=== PATIENT | male | born 1990 | race Caucasian/White ===

== ENCOUNTER 2017-01-26 04:26 | Emergency (ER) | payer SELFPAY ==
[~2017-01-26] VITALS: Ht 172.7 cm; Wt 94.0 kg
[~2017-01-26 04:26] MED LIST: AUGM875T PO; PEPT262S PO; RANI150 PO; TUMS500C CHEW
[2017-01-26 04:28] VITALS: BP 113/73; PULSE 85; RESP 16; TEMP 97.8; O2SAT 97
[2017-01-26] MEDS ORDERED: SODIUM CHLOR 0.9% 1000 ML INJ 1,000 ML IV SCH (06:18)
[2017-01-26] MEDS ORDERED: SODIUM CHLORIDE 0.9% FLUSH 10 ML FLUSH IV FLUSH PRN (06:30)
[2017-01-26 06:50] LABS: AUTOMATED NEUTROPHIL # 13.8 TH/MM3 (1.8-7.7); BASOPHIL # 0.1 TH/MM3 (0-0.2); BASOPHIL % 0.3 % (0.0-2.0); EOSINOPHIL # 0.1 TH/MM3 (0-0.4); EOSINOPHIL % 0.6 % (0.0-4.0); HEMATOCRIT 45.7 % (39.0-51.0); HEMO FLAGS DIFF FINAL; LYMPH % 6.4 % (9.0-44.0); MEAN CELL VOLUME 83.1 FL (80.0-100.0); MEAN CORPUSCULAR HEMOGLOBIN 27.1 PG (27.0-34.0); MEAN CORPUSCULAR HGB CONC 32.6 % (32.0-36.0); MONO % 3.7 % (0.0-8.0); PLATELET COUNT 294 TH/MM3 (150-450); RED CELL DISTRIBUTION WIDTH 14.5 % (11.6-17.2); WHITE BLOOD COUNT 15.6 TH/MM3 (4.0-11.0)
[2017-01-26 06:59] LABS: APTT (PATIENT) 28.1 SEC (24.3-30.1); INTERNATIONAL NORMALIZED RATIO 0.9 RATIO; PROTHROMBIN TIME - PATIENT 10.1 SEC (9.8-11.6)
[2017-01-26 07:14] LABS: ALT (GPT) 45 U/L (12-78); ANION GAP 8 MEQ/L (5-15); AST (GOT) 22 U/L (15-37); BICARBONATE 25.5 MEQ/L (21.0-32.0); BLOOD UREA NITROGEN 13 MG/DL (7-18); CHLORIDE 107 MEQ/L (98-107); GLOMERULAR FILTRATION RATE 80 ML/MIN (>89); POTASSIUM 3.9 MEQ/L (3.5-5.1); SODIUM (NA) 140 MEQ/L (136-145)
[2017-01-26 07:16] LABS: ALKALINE PHOSPHATASE 85 U/L (45-117); TOTAL BILIRUBIN ADULT 0.4 MG/DL (0.2-1.0)
[2017-01-26] MEDS ORDERED: IOHEXOL 350 MG/ML 10 ML VIAL (for RAD DIAG) IVCONTRAST ONE (07:24)
--- NOTE | 2017-01-26 07:59 | RADRPT ---
EXAM DATE/TIME: 01/26/2017 07:25 [place] COMPARISON: No previous studies available for comparison. INDICATIONS : Lower abdomen pain today. IV CONTRAST: 95 cc Omnipaque 350 (iohexol) IV ORAL CONTRAST: No oral contrast ingested. RADIATION DOSE: 15.32 CTDIvol (mGy) MEDICAL HISTORY : Gastroesophageal reflux disease. SURGICAL HISTORY : None. ENCOUNTER: Initial ACUITY: 1 day PAIN SCALE: 8/10 LOCATION: Bilateral lower quadrant TECHNIQUE: Volumetric scanning of the abdomen and pelvis was performed. Using automated exposure control and ad justment of the mA and/or kV according to patient size, radiation dose was kept as low as reasonably achievable to obtain optimal diagnostic quality images. DICOM format image data is available electro nically for review and comparison. FINDINGS: LOWER LUNGS: The visualized lower lungs are clear. LIVER: Homogeneous density without lesion. There is no dilation of the biliary tree. No calcified gallston es. SPLEEN: Normal size without lesion. PANCREAS: Within normal limits. KIDNEYS: Normal in size and shape. There is no mass, stone or hydronephrosis. ADRENAL GLANDS: Within normal limits. VASCULAR: There is no aortic aneurysm. BOWEL/MESENTERY: The stomach, small bowel, and colon demonstrate no acute abnormality. There is no free intraperitone al air or fluid. ABDOMINAL WALL: Within normal limits. RETROPERITONEUM: There is no lymphadenopathy. BLADDER: No wall thickening or mass. REPRODUCTIVE: Within normal limits. INGUINAL: There is no lymphadenopathy or hernia. MUSCULOSKELETAL: Within normal limits for patient age. CONCLUSION: Normal examination. Silvino Chapa MD on January 26, 2017 at 7:55 Board Certified Radiologist. This report was verified electronically.
--- NOTE | 2017-01-26 08:07 | PD ---
HPI Chief Complaint: Abdominal Pain Time Seen by Provider: 06:18 Travel History International Travel<30 days: No Contact w/Intl Traveler<30days: No Traveled to known affect area: No History of Present Illness HPI 26-year-old male presents to the emergency department by EMS transport from home for evaluation of near syncopal episode just prior to arrival to the emergency department. According the patient he has been in his normal state of good health and had felt well all day with the bed and was awakened from sleep with lower abdominal cramping. Patient felt as if he he may have a diarrheal stool and went to the bathroom. Patient states because of lower abdominal pain patient felt lightheaded went to his parents room where they witnessed him to be pale and weak and assisted him down so there was no injury or fall. Patient quickly recovered and was brought to the emergency room for further evaluation. Upon arrival to the emergency department patient had a bowel movement of formed stool subsequently a loose diarrheal stool and then finally passed some red blood per rectum. Patient denies any recent fever chills nausea vomiting or localized abdominal pain yesterday. The patient denies any dietary indiscretion well water ingestion foreign travel. No other family members with similar symptoms. Patient has no chronic GI issues no irritable bowel syndrome no inflammatory bowel disease Crohn's or ulcer colitis. Patient does have family history of Crohn's in a cousin. Patient denied any mucoid stool. No recent antibiotic use. Lower abdominal discomfort has eased. Patient denies any rectal pain. Patient denies any trauma. PFSH Past Medical History Narrative Medical GERD; dental extraction; occasional alcohol use and: Nursing notes reviewed GERD: Yes Immunizations Current: No Past Surgical History Surgical History: No Previous Surgery Social History Alcohol Use: Yes (RARE) Tobacco Use: No Substance Use: No Allergies-Medications (Allergen,Severity, Reaction): Coded Allergies: No Known Allergies (Unverified , 01/26/17) Reported Meds & Prescriptions Reported Meds & Active Scripts Active No Active Prescriptions or Reported Medications Review of Systems Except as stated in HPI: all other systems reviewed are Neg General / Constitutional: No: Fever, Chills HENT: No: Congestion Cardiovascular: No: Chest Pain or Discomfort Respiratory: No: Shortness of Breath Gastrointestinal: Positive: Nausea, Diarrhea, Abdominal Pain, Hematochezia, No : Vomiting Genitourinary: No: Flank Pain Musculoskeletal: No: Myalgias, Arthralgias (times one) Skin: No Rash Neurologic: Positive: Dizziness, Syncope (near-syncope without syncope), No: Weakness Psychiatric: No: Anxiety Hematologic/Lymphatic: No: Lymph Node Enlargement Physical Exam Narrative GENERAL: Well-developed well-nourished male in no acute distress no respiratory distress cervical normotensive SKIN: Warm and dry. HEAD: Normocephalic. EYES: No scleral icterus. No injection or drainage. NECK: Supple, trachea midline. No JVD or lymphadenopathy. CARDIOVASCULAR: Regular rate and rhythm without murmurs, gallops, or rubs. RESPIRATORY: Breath sounds equal bilaterally. No accessory muscle use. GASTROINTESTINAL: Abdomen soft, mild suprapubic tenderness to palpation without guarding or rebound, nondistended. Rectal exam; no fissure no prolapsed hemorrhoids normal sphincter tone. Previous on exam glove no bladder or stool. MUSCULOSKELETAL: No cyanosis, or edema. BACK: Nontender without obvious deformity. No CVA tenderness. Data Data Last Documented VS Vital Signs Date Time Temp Pulse Resp B/P (MAP) Pulse Ox O2 Delivery O2 Flow Rate FiO2 01/26/17 04:28 97.8 85 16 113/73 (86) 97 Room Air Orders Orders Complete Blood Count With Diff (01/26/17 06:18) Comprehensive Metabolic Panel (01/26/17 06:18) Lipase (01/26/17 06:18) Lactic Acid (01/26/17 06:18) Prothrombin Time / Inr (Pt) (01/26/17 06:18) Act Partial Throm Time (Ptt) (01/26/17 06:18) Ua Includes Microscopic (01/26/17 06:18) Ct Abd/Pel W Iv Contrast(Rout) (01/26/17 06:18) Iv Access Insert/Monitor (01/26/17 06:18) Ecg Monitoring (01/26/17 06:18) Oximetry (01/26/17 06:18) Sodium Chlor 0.9% 1000 Ml Inj (Ns 1000 M (01/26/17 06:18) Sodium Chloride 0.9% Flush (Ns Flush) (01/26/17 06:30) Type And Screen (01/26/17 06:18) Orthostatic Vital Signs (01/26/17 06:18) Iohexol 350 Inj (Omnipaque 350 Inj) (01/26/17 07:24) Labs Laboratory Tests Test 01/26/17 06:34 White Blood Count 15.6 TH/MM3 Red Blood Count 5.50 MIL/MM3 Hemoglobin 14.9 GM/DL Hematocrit 45.7 % Mean Corpuscular Volume 83.1 FL Mean Corpuscular Hemoglobin 27.1 PG Mean Corpuscular Hemoglobin Concent 32.6 % Red Cell Distribution Width 14.5 % Platelet Count 294 TH/MM3 Mean Platelet Volume 9.2 FL Neutrophils (%) (Auto) 89.0 % Lymphocytes (%) (Auto) 6.4 % Monocytes (%) (Auto) 3.7 % Eosinophils (%) (Auto) 0.6 % Basophils (%) (Auto) 0.3 % Neutrophils # (Auto) 13.8 TH/MM3 Lymphocytes # (Auto) 1.0 TH/MM3 Monocytes # (Auto) 0.6 TH/MM3 Eosinophils # (Auto) 0.1 TH/MM3 Basophils # (Auto) 0.1 TH/MM3 CBC Comment DIFF FINAL Differential Comment Prothrombin Time 10.1 SEC Prothromb Time International Ratio 0.9 RATIO Activated Partial Thromboplast Time 28.1 SEC Blood Urea Nitrogen 13 MG/DL Creatinine 1.10 MG/DL Random Glucose 103 MG/DL Total Protein 8.0 GM/DL Albumin 4.0 GM/DL Calcium Level 9.4 MG/DL Alkaline Phosphatase 85 U/L Aspartate Amino Transf (AST/SGOT) 22 U/L Alanine Aminotransferase (ALT/SGPT) 45 U/L Total Bilirubin 0.4 MG/DL Sodium Level 140 MEQ/L Potassium Level 3.9 MEQ/L Chloride Level 107 MEQ/L Carbon Dioxide Level 25.5 MEQ/L Anion Gap 8 MEQ/L Estimat Glomerular Filtration Rate 80 ML/MIN Lactic Acid Level 1.9 mmol/L Lipase 106 U/L [facility] Medical Decision Making Medical Screen Exam Complete: Yes Emergency Medical Condition: Yes Medical Record Reviewed: Yes Interpretation(s) Lactic acid 1.9 Last Impressions Abdomen/Pelvis CT 01/26/1718 Signed Impressions: Service Date/Time: Thursday, January 26, 2017 07:25 - CONCLUSION: Normal examination. Silvino Chapa MD CBC & BMP Diagram 01/26/17 06:34 Total Protein 8.0, Albumin 4.0, Calcium Level 9.4, Alkaline Phosphatase 85, Aspartate Amino Transf (AST/SGOT) 22, Alanine Aminotransferase (ALT/SGPT) 45, Total Bilirubin 0.4 Vital Signs Date Time Temp Pulse Resp B/P (MAP) Pulse Ox O2 Delivery O2 Flow Rate FiO2 01/26/17 04:28 97.8 85 16 113/73 (86) 97 Room Air Differential Diagnosis Near syncope arrhythmia vasovagal syncope lower GI bleed colitis inflammatory bowel disease Narrative Course Patient placed on monitor IV access obtained patient administered 1 L normal saline and Zofran 4 mg IV Patient resting comfortably voicing no concerns or complaints waiting on lab results CBC is automated differential shows a leukocytosis with mild left shift 89% neutrophils normal hemoglobin hematocrit platelet count Patient remains afebrile lactic acid 0.9 not elevated Chemistries are grossly within normal range CT abdomen and pelvis reveals no acute intra-abdominal or pelvic process Patient reassessed at 8:20 AM and reports feeling clinically improved desirous of urinating and specimen collected sent for resulting Orthostatic measurements performed HemaPrompt Point of Care Internal Pos. & Neg. Controls: Passed Fecal Specimen Occult Blood: Negative Diagnosis Primary Impression: Vasovagal near syncope Additional Impressions: Gastroenteritis Rectal bleeding Referrals: Primary Care Physician 1 day Patient Instructions: General Instructions Additional Instructions: Increase fluid hydration Follow clear liquid diet for next 12-24 hours; then advance as tolerated to bland/Esme diet and regular diet Take acetaminophen/Tylenol as needed for fever 100.4F or greater Follow-up with your primary care provider Return to the emergency department for any concerns or change in condition or any recurrent rectal bleeding No driving or handling heavy equipment times one day Med/Other Pt SpecificInfo: Prescription(s) given Scripts Hyoscyamine Odt (Levsin-SL) 0.125 Mg Subl 0.125 MG SL Q6H for Gastrointestinal disorders, #7 TAB.SL 0 Refills Prov: Aleta Beck MD 01/26/17 Ondansetron Odt (Zofran Odt) 4 Mg Tab 4 MG SL Q6HR Y for Nausea/Vomiting, #10 TAB 0 Refills Prov: Aleta Beck MD 01/26/17 Disposition: 01 DISCHARGE HOME Condition: Stable Aleta Beck MD Jan 26, 2017 08:07
[2017-01-26] MEDS ORDERED: LEVS0.124 SL (08:25)
[2017-01-26] MEDS ORDERED: ZOFR4TAB3 SL (08:25)
[2017-01-26] MEDS ORDERED: HYOSCYAMINE SOLN 0.125 MG/ML 15 ML BTL PO ONE (08:30)
[2017-01-26 08:36] VITALS: BP_SYST 117; BP_SYST 120; BP_DIAS 63; BP_DIAS 67; BP_DIAS 73; RESP 16
[2017-01-26 08:41] LABS: BLOOD, URINE NEG (NEG); GLUCOSE,URINE NEG (NEG); KETONE, URINE NEG (NEG); NITRITE,URINE NEG (NEG); PH, URINE 7.5 (5.0-8.5); URINE COLOR LIGHT-YELLOW (YELLW/STRAW)
== END 2017-01-26 09:02 | disposition home or self-care (01) ==
LOC: NEPC 04:26
DX: K52.9 Noninfective gastroenteritis and colitis, unspecified (principal); R55 Syncope and collapse; K62.5 Hemorrhage of anus and rectum; K21.9 Gastro-esophageal reflux disease without esophagitis
CPT/HCPCS: 74177; 80053; 81001; 83605; 83690; 85025; 85610; 85730; 86850; 86900; 86901; 96360; 96361; 99285; J7030; Q9967